=== PATIENT | female | born 1930 | race Caucasian/White ===

== ENCOUNTER 2017-04-24 16:30 | Inpatient (IN) | payer MEDICARE, OTHER ==
[~2017-04-24] VITALS: Ht 167.6 cm; Wt 70.4 kg
--- NOTE | ~2017-04-24 | DS ---
PATIENT'S NAME: EL HAWLEY [facility] AGE: 87 Y [address] [id number] [address] LOCATION: [facility] ADMIT DATE: 04/24/2017 Discharge Summary DISCHARGE DATE: 05/04/2017 FAMILY PHYSICIAN: Azeem Iverson MD ATTENDING PHYSICIAN: Lesly Alexander PRIMARY DIAGNOSES: 1. Right intertrochanteric femur fracture. 2. Hypotension. 3. Acute hypoxic respiratory failure. 4. Severe pulmonary hypertension. 5. Acute blood loss anemia. 6. Escherichia coli urinary tract infection. 7. Chronic conditions include:. 8. Atrial fibrillation with rapid ventricular response and essential hypertension. PRINCIPAL PROCEDURES: Done for the patient include intramedullary nailing of right intertrochanteric femur fracture, transfusion with 4 units of fresh frozen plasma. LABORATORY DATA: WBC on admission was 9.0, was stable throughout the hospital stay, prior to discharge was 9.0. H and H on admission were 13.8 and 42.7, prior to discharge were 10.6 and 32.9; platelet on admission was 135, prior to discharge was 152. Creatinine was 1.0, was stable throughout the hospital stay, prior to discharge was 0.8; sodium was 144, prior to discharge was 142; potassium was 3.4 on admission, was repleted, prior to discharge was 4.9; bicarb was stable throughout the hospital stay. Liver function test was within normal limit throughout the hospital stay. INR on admission was 3.62, was repleted, prior to discharge was 3.04. Procalcitonin was 0.38. MICROBIOLOGY DATA: Blood cultures x2 sets, no growth. However, urine culture from the transferring center was positive for E. coli, greater than 100,000. RADIOLOGY DATA: X-ray of the femur, comminuted impacted intertrochanteric fracture of the femur, there is angulation. CT of the chest without contrast, cardiomegaly and ASCVD, bibasilar pleural parenchymal changes could be chronic or acute, small pleural effusions are noted in addition to some streaky changes, likely chronic scarring but micro atelectasis due to inflammatory process not excluded. Chest x-ray, mild cardiomegaly without CHF. PATIENT'S NAME: MARLEEN EL Sd [facility] AGE: 87 Y [address] ROOM: [id number], [place] [address] LOCATION: [facility] ADMIT DATE: 04/24/2017 Discharge Summary DISCHARGE DATE: 05/04/2017 FAMILY PHYSICIAN: Azeem Iverson MD ATTENDING PHYSICIAN: Lesly Alexander V/Q scan, low probability for a pulmonary embolism. Last chest x-ray, cardiac silhouette remains enlarged, blunting of the left costophrenic angle, suggesting small left pleural fluid collection. Hazy left bibasilar atelectasis and infiltrate is present. A stable prominence of the central pulmonary vessels of right lung is relatively clear. There is no evidence of pneumothorax or significant change. Echocardiogram is reported as ejection fraction 60%. Mild concentric LVH. Diastolic function indeterminate. RV is moderately dilated with reduced RV systolic function. PA pressure 69. Moderate severe tricuspid regurgitation by color Doppler. Ultrasound duplex scan of right lower extremity, negative for right lower extremity DVT. Pulmonary function test pre-surgical evaluation, this primarily suggestive of restrictive disease, so a full PFT recommended for lung volume evaluation, although we will take these numbers with the current episode given the lack of effort. HOSPITAL COURSE: For history of present illness, please take a look at the H and P, which was done by Dr. Grace. The patient was admitted to the Neurotrauma Unit. Orthopedic was consulted. The patient was cleared for intramedullary nailing. However, on the day of the procedure while in the preop room, the patient's oxygen need was observed to have gone up from 2 L of nasal cannula to 5 L of nasal cannula, and her procedure was canceled. On return to the floor, the working diagnosis for the acute hypoxic respiratory failure was thought to be secondary to fluid overload from the 4 units of fresh frozen plasma, which the patient had obtained on admission to reverse her INR. However, the chest x-ray, which was obtained did not confirm this. However, the patient was diuresed without much improvement in her oxygen need. She did also get a CAT scan of her lungs, CAT scan of her chest, which did not show any sign of fluid overload. However, her echocardiogram, which was obtained showed features of right-sided heart failure from moderate to severe tricuspid regurgitation and also severe pulmonary arterial hypertension. Given her worsening respiratory condition, Pulmonary was consulted for management, and also to clear the patient for the procedure. She did also get a Cardiology consult because during this time too her atrial fibrillation also went into rapid ventricular response. Following the cancellation of the procedure, she also developed some borderline hypotension as well, which responded a little bit by holding her blood pressure pills. She was started on Rocephin from the first day of the hospital stay. She was being treated for a presumptive urinary tract infection from the referral center. By the next day after the patient was reviewed by the lasting floorworker, they recommended PATIENT'S NAME: EL HAWLEY [facility] AGE: 87 Y [address] ROOM: [address] [address] LOCATION: [facility] ADMIT DATE: 04/24/2017 Discharge Summary DISCHARGE DATE: 05/04/2017 FAMILY PHYSICIAN: Azeem Iverson MD ATTENDING PHYSICIAN: Lesly Alexander that it was okay for the patient to go in for the procedure provided it was possible to be done under a local or under a spinal block. So 2 days after the initial cancellation of the procedure, the patient was taken into the OR for the procedure, which was done under spinal. Prior to the spinal, the patient was given Versed, and postprocedurally received fentanyl, and post procedure, the patient's recovery time in the recovery room was prolonged. She was obtunded secondary to the fentanyl and Versed, and she did also develop some postop hypotension as well, which responded to fluids and some albumin. Eventually, she was transferred back to her floor, and slowly over time, her mentation did return back to baseline. However, the patient still continued to be hypotensive on and off. Most of the time, this would respond to IV fluid boluses. Her medications for her atrial fibrillation were modified repeatedly by the player development executive secondary to her hypotension. Postop, her pain initially was difficult to be managed, however, it did respond later to Nucynta, and also at about the second day postop, the patient did develop some visual hallucination, which initially was thought to be secondary to the Nucynta. However, this was discontinued, but the patient's hallucination remained unchanged, though was not severe and was thought to be probably secondary to the delirium, so her Nucynta was restarted as she was having more pain and was not appropriately controlled with Abingdon, which she was on. Her hallucination did resolve completely even following the restarting of the Nucynta. The patient was pretty difficult, was pretty tough, and would always want to do what she wanted to do and when she wanted to do it, so she did make some little progress with physical therapy and occupational therapy. Her acute hypoxic respiratory failure was relatively unstable. Sometimes, they were able to successfully wean her off oxygen to room air, and other times she would require at least 2 L of oxygen. During her hospital stay, we did get the results of the urine culture at the transfer facility back, which came back as an E. coli UTI, so her ceftriaxone was later switched to Levaquin, which she completed total of 7 days of antibiotics for the UTI. Cardiology also continued to follow up with the patient modifying her medications for her atrial fibrillation, and ultimately putting her on some digoxin and metoprolol. On the day of discharge, her vital signs were stable. The patient was in her usual self. Blood pressure was stable, and she was discharged to the longterm. MEDICATIONS ON DISCHARGE: 1. Lipitor 40 mg p.o. q.h.s. 2. Norvasc 2.5 mg p.o. daily, dose change. 3. Digoxin 250 mcg p.o. daily, new medication. 4. Lasix 40 mg p.o. daily. 5. Melatonin 6 mg p.o. q.h.s., new medication, p.r.n. 6. Bengay to right hip. 7. Multivitamin 1 tablet p.o. daily. 8. Fish oil 1 g p.o. twice daily. PATIENT'S NAME: EL HAWLEY [facility] AGE: 87 Y [address] [id number] [address] LOCATION: [facility] ADMIT DATE: 04/24/2017 Discharge Summary DISCHARGE DATE: 05/04/2017 FAMILY PHYSICIAN: Azeem Iverson MD ATTENDING PHYSICIAN: Lesly Alexander 9. Metoprolol 25 mg p.o. twice daily. 10. Potassium chloride 20 mEq p.o. daily. 11. Florastor 250 mg p.o. twice daily for 2 days. 12. Nucynta 50 mg p.o. 3 times daily. 13. Coumadin 3 mg p.o. Mondays and , and Coumadin 2 mg p.o. 5 days per week. 14. Albuterol 2.5 every 4 hours p.r.n. 15. Tylenol 650 mg p.o. q.4 hours p.r.n. 16. Abingdon 5/325 mg 1 tablet p.o. every 4 hours p.r.n. 17. Dulcolax 10 mg rectally p.r.n. 18. Milk of magnesia 30 mL p.o. as needed p.r.n. 19. Fleet Enema 133 mL rectally p.r.n. Discharge time spent on this patient is approximately 35 minutes, which included coordinating discharge plan with the wound care rn team. MD SAL GAVIN/paril /[id number] d: 05/05/17 0120 t: 05/10/17 1254, DISCHARGE SUMMARY
--- NOTE | ~2017-04-24 | CON ---
PATIENT'S NAME: MARLEEN [facility] AGE: 87 Y [address] [id number], [place] [address] LOCATION: GICU ADMIT DATE: 04/24/2017 Consultation DISCHARGE DATE: 05/04/2017 FAMILY PHYSICIAN: Azeem Iverson MD ATTENDING PHYSICIAN: Benjamin Grace DATE OF CONSULTATION: 04/25/2017 REFERRING PHYSICIAN: Jr Mendoza DO REASON FOR CONSULTATION: Preoperative evaluation for orthopedic surgery. HISTORY OF PRESENTING ILLNESS: This is an 87-year-old female, who is unfortunately not a very good historian. She does have a history of congestive heart failure as well as atrial fibrillation, on Coumadin. The patient sustained a purely mechanical fall earlier today. She was taken to the hospital in [place] when she was found to have intratrochanteric hip fracture. The patient was transferred to [facility] for higher level of care. Apparently, she slipped down on her behind and did not sustain any other injuries. There was no loss of consciousness, loss of memory associated with the fall. She has been in her usual state of health with no recent events. At the [facility], her temperature was 100.3 and had a borderline positive interval losses and had received Bactrim. Her lab studies were unremarkable aside from an INR of 3.9. The patient also during her stay in the hospital developed shortness of breath. She did have a 2D echocardiogram, which revealed elevated pulmonary artery pressure. She also had a history of possible underlying disease and chronic respiratory failure. REVIEW OF SYSTEMS: A 10-point review of system was done and otherwise negative other than mentioned in history of presenting illness. PAST MEDICAL HISTORY: As extracted from the chart and history provided by the patient and her family includes. PATIENT'S NAME: CALUMET [facility] AGE: 87 Y [address] [id number] [address] LOCATION: GICU ADMIT DATE: 04/24/2017 Consultation DISCHARGE DATE: 05/04/2017 FAMILY PHYSICIAN: Azeem Iverson MD ATTENDING PHYSICIAN: Benjamin Grace 1. History of congestive heart failure. 2. Pulmonary hypertension. 3. Atrial fibrillation. 4. Essential hypertension. 5. History of lung disease. PAST SURGICAL HISTORY: Significant for leg fracture requiring fixation of her right lower extremity. SOCIAL HISTORY: She is an ex-smoker. There is no current history of tobacco, alcohol, or drug abuse. FAMILY HISTORY: Reviewed and is noncontributory due to the patient's advanced age. There is no family history of premature coronary artery disease. PHYSICAL EXAMINATION: GENERAL: Upon initial evaluation, the patient is lying in bed, in mild-to- moderate respiratory distress. VITAL SIGNS: Include a temperature of 98, pulse is 100, respirations 24, blood pressure is 125/85, 93% on 6 L with increasing hypoxia. HEENT: Eyes are nonicteric. Pupils are reactive to light and accommodation. HEENT: Normocephalic, atraumatic. Wet mucous membranes. NECK: Supple. No lymphadenopathy. No jugular venous distention. LUNGS: Good bilateral air entry. There are diffuse crackles. HEART: S1, S2. No murmurs, rubs, or gallops. ABDOMEN: Soft, nontender, no palpable organs. LOWER EXTREMITIES: There is +1 edema. There is no clubbing or cyanosis. SKIN: Warm and dry. MUSCULOSKELETAL: Severe secondary to the patient's pain. PSYCHIATRIC: Reveals appropriate mood, cognition, and affect. LABORATORY DATA: At the current point, review of the study from the outside hospital revealed a chest x-ray, which is unremarkable. Pelvis x-ray showing intertrochanteric hip fracture. EKG from [place] demonstrates AFib at 84 beats per minute. Her white cell count was 9, her hemoglobin was 13.8, hematocrit was 42, platelets 135. Protime is 38.5. PH was 7.49, pCO2 was 39, PO2 was 50. IMPRESSION: 1. Acute hypoxic respiratory failure most likely secondary to fluid overload, and possibility of underlying lung disease. 2. Pulmonary hypertension. PATIENT'S NAME: EL HAWLEY [facility] AGE: 87 Y [address] [place]: [id number] [address] LOCATION: [facility] ADMIT DATE: 04/24/2017 Consultation DISCHARGE DATE: 05/04/2017 FAMILY PHYSICIAN: Azeem Iverson MD ATTENDING PHYSICIAN: Benjamin Grace 3. Non-ST elevated myocardial infarction. RECOMMENDATION: 1. At the current point, I will recommend diuresis. 2. I do recommend to avoid general anesthesia for this patient unless they could do a regional block, if that is not the case general anesthesia is appropriate for the after optimization of the patient. 3. The patient is currently hypoxic. 4. We will continue her current medication, we will DuoNeb. We will obtain an ABG. 5. We will follow up with the primary care team for active diuresis. 6. I will also follow up with Cardiology. Thank you for allowing me to participate in care of this patient. MD ARNOLD NAPIER/mark /[id number] d: 05/28/17 0022 t: 05/31/17 0909, CONSULTATION REPORT
--- NOTE | ~2017-04-24 | CON ---
PATIENT'S NAME: EL HAWLEY [facility] AGE: 87 Y [address] ROOM: [place] [address] LOCATION: GICU ADMIT DATE: 04/24/2017 Consultation DISCHARGE DATE: 05/04/2017 FAMILY PHYSICIAN: Azeem Iverson MD ATTENDING PHYSICIAN: Benjamin RUIZ DATE OF CONSULTATION: 04/24/2017 REFERRING PHYSICIAN: JR MENDOZA DO REQUESTING PHYSICIAN: Jr Mendoza DO CONSULTING PHYSICIAN: Chris Erwin MD REASON FOR CONSULTATION: Preoperative optimization. HISTORY OF PRESENT ILLNESS: The patient is an 87-year-old female, who is unfortunately not a very good historian. It appears that she does carry history of congestive heart failure as well as atrial fibrillation on Coumadin. The patient sustained a purely mechanical fall earlier today. She was taken to the hospital in [place] when she was found to have an intertrochanteric hip fracture. The patient was transferred to [place] for surgical management. Per my discussion with the patient, she reports that she basically lost her footing and slipped down onto her behind and did not sustain any other injuries. There was no loss of consciousness or loss of memory associated with this episode. The patient still lives in her own home with her 95-year- old and takes care of him. She does not report any occurrences of shortness of breath, orthopnea, paroxysmal nocturnal dyspnea, chest pain, or palpitations. The patient reports that she has been in her baseline state of health as of lately though has been slightly more tired which she attributes to age. At the outside hospital, the patient did have a temperature of 100.3 and had a borderline positive urinalysis and had received Bactrim. Her lab studies were unremarkable aside from an INR of 3.9. REVIEW OF SYSTEMS: All systems have been reviewed and are negative aside from pertinent positives mentioned above. PATIENT'S NAME: EL HAWLEY [facility] AGE: 87 Y [address] ROOM: [place] [address] LOCATION: GICU ADMIT DATE: 04/24/2017 Consultation DISCHARGE DATE: 05/04/2017 FAMILY PHYSICIAN: Azeem Iverson MD ATTENDING PHYSICIAN: Benjamin RUIZ PAST MEDICAL HISTORY: As extracted from her chart and a history provided by the patient and her daughter is significant for, 1. Questionable history of congestive heart failure, unspecified type. 2. Atrial fibrillation on Coumadin therapy. 3. Essential hypertension. PAST SURGICAL HISTORY: Significant for a leg fracture requiring fixation of her right lower extremity. SOCIAL HISTORY: Negative for history or ongoing toxic habits. The patient still resides at home and manages well. FAMILY HISTORY: Reviewed and is noncontributory due to known underlying etiology for the patient's presentation and advanced age. PHYSICAL EXAMINATION: VITAL SIGNS: Her temperature is 97.6, pulse is 84, respirations 18, blood pressure 124/74, saturating 93% on 2 L nasal cannula, desaturating down into mid to high 80s on room air. GENERAL: Appears as an elderly frail female, in no acute distress. Alert and oriented x3. NEUROLOGIC: Nonfocal. EYES: Exam shows pupils are equal and reactive to light. LYMPHATIC: Shows no cervical lymphadenopathy. ENDOCRINE: Shows no thyromegaly. LUNGS: Clear to auscultation in all mendez. HEART: Exam reveals an irregular rate and rhythm with no significant murmurs, gallops, or rubs. There is no lower extremity edema and trace jugular venous distention. GI: Exam reveals abdomen is soft, nontender, nondistended. : No costovertebral angle tenderness. VASCULAR: 2+ pedal pulses. MUSCULOSKELETAL: Exam is deferred. SKIN: Warm and dry. PSYCHIATRIC: Reveals appropriate mood, cognition, and affect. LABORATORY DATA: Review of the studies from the outside hospital revealed a chest x-ray which is unremarkable and pelvis x-rays showing an intertrochanteric hip fracture. Her EKG from [place] demonstrates AFib at 84 beats per minute with questionable very minor ST depression in V5 as long as concurrent T-wave PATIENT'S NAME: EL HAWLEY [facility] AGE: 87 Y [address] ROOM: [place] [address] LOCATION: [facility] ADMIT DATE: 04/24/2017 Consultation DISCHARGE DATE: 05/04/2017 FAMILY PHYSICIAN: Azeem Iverson MD ATTENDING PHYSICIAN: Benjamin RUIZ inversions in the same lead. Lab studies reveal an INR of 3.9 and aside from that, an unremarkable CBC and a BMP as well as negative cardiac enzymes. Urinalysis shows positive nitrates and 3+ bacteria with 0 to 2 epithelial cells. IMPRESSION AND RECOMMENDATIONS: This is an 87-year-old female, who is scheduled for operating room for tomorrow for intertrochanteric nail fixation of a right hip fracture. 1. Preoperative optimization. At this point, the patient appears to be euvolemic and does not report any symptoms that would suggest decompensation of her cardiac conditions in recent term. As such, I would recommend that we get a perioperative two dimensional echo which we will not hold up the time of the surgery. We will carefully monitor the patient's fluid status given her history of congestive heart failure pre and postop. We will reverse the patient's iatrogenic coagulopathy with vitamin K and FFP and target that therapy for an INR below 1.5. No additional preoperative optimization will be required. 2. History of essential hypertension. We will continue the patient on her current antihypertensive regimen. 3. Pain control and preop orders have been entered by Orthopedic Service. 4. We will follow the patient with you and help manage her perioperative course. Thank you for allowing us to participate in the care of this pleasant woman. Time dedicated to this patient's encounter is 35 minutes. MD TANNA GARY/mark /[id number] d: 04/25/17 0145 t: 06/05/17 0402, CONSULTATION REPORT
--- NOTE | ~2017-04-24 | PUL ---
PATIENT'S NAME: EL HAWLEY [facility] AGE: 87 Y [address] ROOM: [place] [address] LOCATION: [facility] ADMIT DATE: 04/24/2017 Pulmonary DISCHARGE DATE: FAMILY PHYSICIAN: Azeem Iverson MD ATTENDING PHYSICIAN: Benjamin RUIZ NAME OF PROCEDURE: Pulmonary Function Test DATE OF PROCEDURE: May 02, 2017 TECH: HIMA Montiel REASON FOR EXAM: Pre-surgical evaluation RESULTS: Spirometry reveals decreased FVC at 0.74 which is 31% predicted, decreased FEV1 at 0.68 which is 38% predicted, normal FEV1/FVC ratio of 91.3%. The patient did not give great efforts. PHYSICIAN INTERPRETATION: This spirometry suggestive of restrictive disease so a full PFT recommended for lung volume evaluation although will take these numbers with a grain of salt given the lack of effort. I thank you for allowing me to participate in care of this patient. MD ARNOLD NAPIER/esvin /[id number] dtt: 05/04/17 1052 , Rm Mcpherson dtd: 04/28/17 1112
--- NOTE | ~2017-04-24 | CON ---
PATIENT'S NAME: EL OMER [facility] AGE: 87 Y [address] ROOM: [place] [address] LOCATION: GICU ADMIT DATE: 04/24/2017 Consultation DISCHARGE DATE: FAMILY PHYSICIAN: Azeem Iverson MD ATTENDING PHYSICIAN: Benjamin RUIZ REFERRING PHYSICIAN: JANELL PATEL DO CARDIOLOGY CONSULTATION REPORT REFERRING PHYSICIAN: Joseph Land MD REASON FOR CONSULTATION: Atrial fibrillation with rapid ventricular rate and preop cardiac risk stratification. HISTORY OF PRESENT ILLNESS: Ms. Omer is a pleasant 87-year-old female who was brought to the hospital following a fall and fracture of the right femur. The patient apparently had a mechanical fall on Thursday. She was taken to the hospital in [place], where she was found to have intertrochanteric right hip fracture. She was subsequently transferred to [facility] for surgical management. The patient denies any loss of consciousness. The patient denies any dizziness. She stated that she slipped and fell. The patient lives in her own home with her . She denies to nj shortness of breath. No history of chest pain. No history of palpitations. No previous known history of coronary artery disease. REVIEW OF SYSTEMS: The patient has chronic mild diminution in vision. No recent change. No history of dysphagia. No history of nausea or vomiting. No history of diarrhea or constipation. No history of cough or expectoration. She complained of pain in the right hip area. Review of other systems was essentially negative. PAST MEDICAL HISTORY: 1. Chronic atrial fibrillation. She is on long-term anticoagulation. 2. Hypertension. PAST SURGICAL HISTORY: History of fracture of right lower extremity. SOCIAL HISTORY: The patient is and lives with her . FAMILY HISTORY: PATIENT'S NAME: MIR [facility]ERTY [facility] AGE: 87 Y [address] ROOM: [place] [address] LOCATION: GICU ADMIT DATE: 04/24/2017 Consultation DISCHARGE DATE: FAMILY PHYSICIAN: Azeem Iverson MD ATTENDING PHYSICIAN: Benjamin RUIZ No family history of premature coronary artery disease. PHYSICAL EXAMINATION: GENERAL APPEARANCE: She is awake, alert, and oriented and her family is at bedside. VITAL SIGNS: Her pulse rate is 112 beats per minute, blood pressure is 127/78 mmHg, respiratory rate 18, and temperature 98.1. HEENT: Her head is atraumatic and normocephalic. She is on oxygen at 5 L/minute by nasal cannula. Tongue is moist. NECK: No significant jugular venous distention is present. CARDIOVASCULAR: S1 and S2 are audible. They are irregular in rate and rhythm. Grade 2/6 systolic murmur is audible in the left parasternal area. RESPIRATORY: Bilateral vesicular breath sounds are audible. Breath sounds are diminished on both sites. Minimal basilar crackles are audible on both sides. ABDOMEN: Distended which is chronic per patient. Soft, nontender. EXTREMITIES: Left lower extremity has mild pedal edema. Right lower extremity has dressing and is on support. NEUROLOGIC: She is awake, alert, and oriented. SKIN: Warm and dry. Her intake in the last 24 hours was 881, with the output of 2450 with a negative balance of 1569 mL. LABORATORY DATA AND IMAGING STUDIES: PH 7.49, pCO2 of 39, and pO2 of 50. Sodium 145, potassium 4.3, chloride 108, CO2 of 28, glucose 120, BUN 27, and creatinine 0.9. AST 23, ALT is 26, and magnesium 2.3. CPK 65, CK-MB less than 0.5, and troponin less than 0.04. ProBNP 4626. White blood cell count 8.1, hemoglobin 12.7, hematocrit 39.6, and platelet count 112,000. Her INR was 1.1. Her chest x-ray showed cardiomegaly with no evidence of pulmonary edema. CT scan of the chest showed mild bilateral pleural effusions. X-ray of the right leg showed comminuted, impacted intertrochanteric fracture of the femur. EKG done on 04/24/2017 showed atrial fibrillation with ventricular rate of 94 beats per minute. T-wave inversion was noted in anterolateral leads. Echocardiogram showed normal LV size and systolic function with estimated ejection fraction of 60%. Moderate concentric left ventricular hypertrophy. Moderately dilated RV with reduced RV systolic function. Fedjcqvi-mo-pucmwl tricuspid regurgitation with severe pulmonary hypertension. Her estimated pulmonary pressure was 69 mmHg. MEDICATIONS: Her cardiac medications include: 1. Atorvastatin 40 mg daily. 2. Potassium 20 mEq daily. PATIENT'S NAME: EL OMER [facility] AGE: 87 Y [address] ROOM: [id number] [place], [place] [address] LOCATION: [facility] ADMIT DATE: 04/24/2017 Consultation DISCHARGE DATE: FAMILY PHYSICIAN: Azeem Iverson MD ATTENDING PHYSICIAN: Benjamin RUIZ 3. Furosemide 40 mg daily. 4. Amlodipine 5 mg daily. 5. Lisinopril 20 mg b.i.d. ASSESSMENT AND PLAN: 1. Atrial fibrillation with rapid ventricular rate. Rapid ventricular rate is likely secondary to her recent fracture with pain, hypoxia. Her beta blockers were discontinued due to hypotension today. We will restart beta blockers at a lower dose for ventricular rate control and monitor. We will hold lisinopril and amlodipine, if blood pressure remains low. Treatment of hypoxia and right femur fracture per the hospitalist team. 2. Cor pulmonale. The patient has severe pulmonary hypertension due to possible chronic obstructive pulmonary disease and diastolic dysfunction. She has ifjovjlk-aw-zoiavk tricuspid regurgitation and mildly diminished right ventricular systolic function. We will continue diuretics. Continue management for hypertension. Management of possible chronic obstructive pulmonary disease per the hospitalist team. 3. Right femur intertrochanteric fracture. The patient is being planned for surgery. Due to her advanced age, comorbid medical conditions including hypoxia requiring 5 L of oxygen, possible chronic obstructive pulmonary disease, and pulmonary hypertension, she is at intermediate to high risk for perioperative cardiac events. Please monitor patient hemodynamically and watch for any arrhythmias. Please avoid severe hypertension or hypotension. No further cardiac workup is recommended prior to urgent surgery. The plan of care was discussed with Dr. Land. We will follow the patient along with you. Thank you for allowing us in taking part in the care of this pleasant patient. Please see today's progress note for further recommendations. MD MARILEE RIVERA/mark /[id number] d: 04/26/17 1835 t: 05/07/17 1744, CONSULTATION REPORT
--- NOTE | ~2017-04-24 | OR ---
PATIENT'S NAME: MISSY OMER [facility] AGE: 87 Y [address] ROOM: [place] [address] LOCATION: [facility] ADMIT DATE: 04/24/2017 OR/Procedure Report DISCHARGE DATE: FAMILY PHYSICIAN: Azeem Iverson MD ATTENDING PHYSICIAN: Benjamin RUIZ SURGEON: Janell Mendoza DO DOCUMENT MANAGEMENT SPECIALIST: DATE OF PROCEDURE: 04/27/2017 PREOPERATIVE DIAGNOSES: 1. Right comminuted intertrochanteric hip fracture. 2. Osteopenia. 3. History of cardiopulmonary disease with pulmonary hypertension and atrial fibrillation. PROCEDURE: Internal fixation of right intertrochanteric fracture using [employer] InterTAN TriGen cephalomedullary nail size 130 degree right, 13 mm in diameter x 40 cm in length with integrated interlocking lag screw system, 105 mm lag screw, 100 mm compression screw. COMPLICATIONS: None. ESTIMATED BLOOD LOSS: Less than 50 mL. ANTIBIOTICS: 2 g IV Ancef. ANESTHESIA: Local with block done preoperatively. INDICATIONS: Ms. Missy Omer is a pleasant 87-year-old female who had a mechanical fall from standing height, sustaining pathologic intertrochanteric fracture of the right hip. This occurred on Thursday, which she had been seen medically and reversed her anticoagulation, Coumadin, with the hospitalist using FFP. Due to cardiopulmonary concerns, she had not been cleared till today. She had been saturating on 3 L, requiring 3 L for O2 saturations that came up to 5 L. After appropriate workup and medical optimization, she has deemed increased risk for cardiopulmonary complications and has been optimized as good as she can. We discussed the risks, benefits, and potential complications with the patient's family members. She has been cross covered off the Coumadin on heparin. Understands the increased risk of bleeding, understands the risk of DVT which could lead to pulmonary embolism or even . Understands the risk of a clot forming that can end up with a stroke. She understands the risk of periprosthetic fractures, infections, fat emboli, breakage of the hardware, cut out of the hardware. She understands the risks of traction injury, neurovascular injury. Having been told all the scary things that can happen, the patient's family members were well informed and PATIENT'S NAME: MISSY OMER [facility] AGE: 87 Y [address] ROOM: [id number] [place], [place] [address] LOCATION: [facility] ADMIT DATE: 04/24/2017 OR/Procedure Report DISCHARGE DATE: FAMILY PHYSICIAN: Azeem Iverson MD ATTENDING PHYSICIAN: Benjamin RUIZ they did want to undergo surgical treatment even though she is high risk. DESCRIPTION OF PROCEDURE: The patient was brought back to operative suite, having undergone preoperative block in the preop arena. We reduced the fracture on the Heber table in both AP and lateral planes. Time-out confirmed the operative site. Preop antibiotics. A 2-cm incision was made proximal to the greater trochanter. The fascia was split and using blunt finger dissection in the appropriate landmarks with the guidepin placed protecting the piriformis and gluteus tendon, the guidewire was placed followed by reamer after confirmed in AP and lateral under a reduced intertrochanteric fracture. We then placed an intramedullary guide pin down to the physeal scar of the knee, distal tibia, and measured it to be 40 cm. The 130 degree right InterTAN TriGen nail was selected after reaming 40.5 mm and this nail slit gently over the guidewire. We confirmed the positioning and then placed the guide pin to measure the lag screw which measured 105 mm. We confirmed the position in both AP and lateral with goal tip to apex distance met, and placed 105 mm lag screw and 100 mm compression screw. Traction was let off prior to applying compression. The lag screw locked proximally. X-rays confirmed good positioning and alignment of the fracture. There was minimal blood loss. Local Marcaine with epinephrine was injected at the two incision sites. AP and lateral x-rays confirmed positioning of the roxane and no complications. The wound was irrigated and closed the fascia with #1 Vicryl in a utkqge-ym-qvmor pattern and the subcutaneous tissue with Monocryl in a simple buried pattern followed by skin topher. Sterile dressing was placed. Sponge and needle counts were correct without complications. The staff then brought her off the operating room table and brought her to recovery room. If she develops any change in her saturations or concerns, she will go to the ICU. I have discussed with Anesthesia to go down and inspect that she will need this, so we will carefully monitor her. We will allow her to toe-touch weight bear due to her osteoporosis and risk for cut out if she puts too much weight due to concerns of her bone quality only. JANELL MENDOZA DO PH/paril /[id number] d: 04/27/172231 t: 05/06/17 0523, OPERATIVE SUMMARY
--- NOTE | ~2017-04-24 | CON ---
PATIENT'S NAME: EL HAWLEY [facility] AGE: 87 Y [address] ROOM: [place] [address] LOCATION: [facility] ADMIT DATE: 04/24/2017 Consultation DISCHARGE DATE: FAMILY PHYSICIAN: PHYSICIAN, UNKNOWN ATTENDING PHYSICIAN: Benjamin RUIZ REFERRING PHYSICIAN: JR MENDOZA DO CHIEF COMPLAINT: Right hip pain. HISTORY OF PRESENT ILLNESS: This is an 87-year-old female, who was at [facility], had a mechanical fall, injuring her right hip. She was transferred to [facility] and referred here for definitive care. She is admitted to the hospitalist, Dr. Lesly Alexander, with sc Orthopedic Surgeon, Dr. Jr Mendoza for consultation for her orthopedics injuries to her hip. She states she had no loss of consciousness and no symptoms prior to the fall. It was simply mechanical. She does have history of fall. She did not report any loss of consciousness. Labs and x-rays reviewed from [facility] confirmed a right comminuted intertrochanteric fracture. She has osteopenia, chronic back pain, history of falls, and atrial fibrillation with INR at 3.9. She has a history of CHF, UTIs, hypertension, hypokalemia, thrombocytopenia, and renal insufficiency. PAST MEDICAL HISTORY: Reviewed above. PAST SURGERIES: Include benign breast mass removed and tibia fracture fixation. CURRENT MEDICATION LIST: Reviewed. ALLERGIES: PENICILLIN, UNKNOWN SIDE EFFECT. PHYSICAL EXAMINATION: GENERAL: The patient is alert and oriented x3. Pain is well-controlled. Her daughter is at the bedside. She is lying supine. NEURO: She moves bilateral upper extremities without pain and left lower extremity without pain. She admits to having chronic back pain, but no different than normal. No bowel or bladder changes or saddle-like anesthesia. Right hip region is closed. There is swelling. Did not check motor exam. HEENT: Her head is normocephalic, atraumatic. NECK: Supple. Trachea midline. LUNGS: She is breathing without use of accessory muscles. No significant rib PATIENT'S NAME: EL HAWLEY [facility] AGE: 87 Y [address] ROOM: [place] [address] LOCATION: [facility] ADMIT DATE: 04/24/2017 Consultation DISCHARGE DATE: FAMILY PHYSICIAN: PHYSICIAN, UNKNOWN ATTENDING PHYSICIAN: Benjamin RUIZ tenderness. She has no tenderness over clavicles and moves bilateral upper extremities without pain. There is no abrasions over elbows or wrists region with no tenderness there. ABDOMEN: Soft, nontender. EXTREMITIES: She is able to wiggle her toes below with normal sensation on both sides. Again, did not check motor response to her right lower extremity. LABORATORY DATA: X-rays reviewed are AP pelvis and lateral right hip do not show the entire femur, the proximal femur at the intertrochanteric region shows comminuted shortened varus positioned intertrochanteric fracture on the right. There also is diffuse osteopenia with lumbar degenerative changes. IMPRESSION: An 87-year-old female with what is reported as a mechanical fall, fracture in her right intertrochanteric femur, she is hyper-anticoagulated due to her atrial fibrillation on Coumadin with an INR of 3.9, she is admitted to the hospitalist to address her hyper-anticoagulation as well as medically optimize and clear her for surgical fixation. I ordered x-ray full length femur to confirm no other potential complications at the femur-size implant, long cephalomedullary roxane to the right femur upon medical clearance and optimization. We discussed the risks, benefits, potential complications, with the patient's daughter at the bedside, understanding she is at increased risk for perioperative cardiac event given her history, she will have reversal of her hyper-anticoagulation with atrial fibrillation and is at risk for stroke. She will start back those anticoagulation treatment measures as soon as able to postfracture fixation. She has osteopenia and has the risk for increase cutout or periprosthetic fractures even with the roxane in there. We will do our best to align the fracture and place the cephalomedullary roxane and get her back to weightbearing with use of walker, strengthening, and fall precautions. Aggressive pulmonary care. She has been recently treated for urinary tract infection, understands risk of infection, neurovascular injury. She does have calcifications seen in her vessels on AP x-ray indicating peripheral vascular disease also at risk for coronary disease with that correlation. She understands risk of forming the deep vein thrombosis and this could lead to pulmonary embolism and even . She understands the mortality rate can be as high as 50%, the patient's are not living in the year after this type of age group and injured fracture. Understand the potential for bleed especially on anticoagulants, potential for complication for medications including anaphylaxis. The patient has been well-informed and we will let the hospitalist admit her and medically optimize this patient in preparation for fracture fixation. They understand thoroughly the treatment options, risks, benefits, and potential complications. PATIENT'S NAME: EL HAWLEY [facility] AGE: 87 Y [address] ROOM: [place] [address] LOCATION: [facility] ADMIT DATE: 04/24/2017 Consultation DISCHARGE DATE: FAMILY PHYSICIAN: PHYSICIAN, UNKNOWN ATTENDING PHYSICIAN: Benjamin RUIZ JR MENDOZA DO PH/modl /[id number] d: 04/25/17 0105 t: 04/27/17 1410, CONSULTATION REPORT
--- NOTE | ~2017-04-24 | ECHO ---
Transthoracic Echocardiography Report (TTE) Demographics Patient Name EL HAWLEY Date of Study 04/25/2017 Patient Number [id number] Visit Number [id number] Date of 1930 Room Number G6223 Accession Number [id number] Gender Female Age 87 year(s) Referring Erosion Control Specialist Radha Kang [facility] Physician Physician Interpreting Lauren Schultz Otr Flatbed Driver Physician MD Supervising Ordering Physician MD/MLP Nurse Stress Watch Hairspring Assembler Conclusions Summary Technically difficult exam. Normal LV size and systolic function. The estimated left ventricular ejection fraction is 60%. Moderate concentric left ventricular hypertrophy. Diastolic function indeterminate due to patient's arrhythmia. RV is moderately dilated with reduced RV systolic function. Moderate biatrial enlargement. Dilated IVC with poor inspiratory collapse consistent with elevated RA pressure. Moderate-severe tricuspid regurgitation by color Doppler. There is severe pulmonary hypertension. The pulmonary pressure (RVSP) is 69 mmHg. Procedure Type of Study TTE procedure:2D Echocardiogram. Procedure Date Date: 04/25/2017 Start: 12:29 PM Study Location: Inpatient Portable Technical Quality: Limited visualization due to combative patient. Indications:Congenital heart disease. Appropriate Use Criteria: 9 Patient Status: Routine HR: 105 bpm BP: 118/79 mmHg M-Mode/2D Measurements LV Diastolic Dimension: 2.69 cm LV Systolic Dimension: 1.62 cm LV Septum Diastolic: 1.39 cm LV PW Diastolic: 1.31 cm AO Root Dimension: 2.8 cm Cardiac Output: 2.62 l/min AV Cusp Separation: 1.4 cm RV Diastolic Dimension: 3.75 cm LA volume: 118 ml LVOT: 2 cm LVOT VTI: 7.96 cm LV Stroke volume: 24.99 ml Doppler Measurements AV Peak Velocity: 1.16 m/s MV Peak E-Wave: 0.78 m/s AV Peak Gradient: 5.38 mmHg AV Mean Gradient: 3 mmHg MV P1/2t: 34 msec LVOT Peak Velocity: 0.61 m/s TR Velocity:3.69 m/s PV Peak Velocity: 0.58 m/s TR Gradient:54.46 mmHg PV Peak Gradient: 1.34 mmHg Estimated RAP:15 mmHg Estimated PASP: 69.46 mmHg Estimated RVSP: 69 mmHg Findings Left Ventricle Moderate concentric left ventricular hypertrophy. Diastolic function indeterminate due to patient's arrhythmia. Right Ventricle RV is moderately dilated with reduced RV systolic function. Left Atrium The left atrium is moderately dilated. Right Atrium RA is moderately dilated. Dilated IVC with poor inspiratory collapse consistent with elevated RA pressure. Mitral Valve Trivial mitral regurgitation by color Doppler. Aortic Valve The aortic valve is moderately sclerotic. Tricuspid Valve Moderate-severe tricuspid regurgitation by color Doppler. There is severe pulmonary hypertension. The pulmonary pressure (RVSP) is 69 mmHg. Pulmonic Valve Pulmonic valve is not well seen. Signature dtt: IRENE HERNANDES dtd: 04/25/17 1229 Physician Self Edit
--- NOTE | ~2017-04-24 | ENPV ---
Vascular Lower Extremities DVT Study Procedure Demographics Patient Name EL HAWLEY Date of Study 05/02/2017 Patient Number [id number] Gender Female Date of 1930 Age 87 Visit Number [id number] Height 66 Accession Number [id number] Weight 133 Referring Kishor Romo MD Physician Physician Physician Mary Grover Theatre Manager Physician Pipe Changer Precious Jennings [facility], RVT Conclusions Summary TECHNIQUE: The veins of the lower extremity on the right were evaluated from the groin to the ankle using toledo scale, compression, and augmentation. Venous hemodynamics were evaluated with color flow and spectral Doppler. FINDINGS: The deep and superficial veins of the right leg show normal color flow and compressibility without thrombosis. IMPRESSION: 1. NEGATIVE RIGHT LOWER EXTREMITY VENOUS DOPPLER. Procedure Type of Study: Veins:Lower Extremities DVT Study, Lower Extremity Right. Patient Status:Routine. Study Location:Inpatient Portable. Technical Quality:Limited visualization due to patient immobility. Velocities are measured in cm/s ; Diameters are measured in cm Right Lower Extremities DVT Study Measurements Right 2D and Doppler Measurements + + + + +------+------+ + !Location !Visualized!Compressibility!Thrombosis!Signal!Reflux!Reflux ! ! ! ! ! ! ! !(sec) ! + + + + +------+------+ + !GSV Thigh !Yes !Yes !None !Phasic!No ! ! + + + + +------+------+ + !Common !Yes !Yes !None !Phasic!No ! ! !Femoral ! ! ! ! ! ! ! + + + + +------+------+ + !Prox !Yes !Yes !None !Phasic!No ! ! !Femoral ! ! ! ! ! ! ! + + + + +------+------+ + !Mid Femoral!Yes !Yes !None !Phasic!No ! ! + + + + +------+------+ + !Dist !Yes !Yes !None !Phasic!No ! ! !Femoral ! ! ! ! ! ! ! + + + + +------+------+ + !Popliteal !Yes !Yes !None !Phasic!No ! ! + + + + +------+------+ + !Gastroc !Yes !Yes !None !Phasic!No ! ! + + + + +------+------+ + !PTV !Yes !Yes !None !Phasic!No ! ! + + + + +------+------+ + !Peroneal !Yes !Yes !None !Phasic!No ! ! + + + + +------+------+ + Left Lower Extremities DVT Study Measurements Left 2D and Doppler Measurements + + + + +------+------+ + !Location !Visualized!Compressibility!Thrombosis!Signal!Reflux!Reflux ! ! ! ! ! ! ! !(sec) ! + + + + +------+------+ + !GSV Thigh !Yes !Yes !None !Phasic! ! ! + + + + +------+------+ + !Common !Yes !Yes !None !Phasic! ! ! !Femoral ! ! ! ! ! ! ! + + + + +------+------+ + Impressions Right Impression no dvt seen Signature dtt: Soham Coppola dtd: 05/02/17 [facility] Physician Self Edit
[2017-04-24] MEDS ORDERED: COUMADIN ** 9/62 MG PO ×2 (17:38→17:46)
[2017-04-24] MEDS ORDERED: ZAROXOLYN2.5 MG PO (17:49)
[2017-04-24] MEDS ORDERED: LASIX40 MG PO (17:50)
[2017-04-24] MEDS ORDERED: NORVASC2.5 MG PO (17:52)
[2017-04-24] MEDS ORDERED: COREG25 MG PO (17:58)
[2017-04-24] MEDS ORDERED: POTASSIUM CHLO20 ME1 PO (18:00)
[2017-04-24] MEDS ORDERED: LIPITOR40 MG PO (18:01)
[2017-04-24] MEDS ORDERED: LOTENSIN20 MG PO (18:02)
[2017-04-24] MEDS ORDERED: FISH OIL 1,0001 EAC5 PO (18:03)
[2017-04-24] MEDS ORDERED: MULTI VITAMIN1 EACH PO (18:03)
[2017-04-24] MEDS ORDERED: VITAMIN D-40400 UNIT PO (18:04)
[2017-04-24 21:04] LABS: HEMATOCRIT 42.7 % (30.0-46.0); HEMOGLOBIN 13.8 g/dL (10.0-15.0); MCH 33.5 pg (27.0-34.0); MCHC 32.3 gm/dL (32.0-36.5); MCV 103.6 fl (83.0-98.0); MPV 10.5 fl (9.4-12.4); PLATELET COUNT 135 K/uL (150-450); RBC 4.12 M/uL (3.00-5.00); RDW-CV 14.9 % (11.9-14.6)
[2017-04-24 21:14] LABS: INR - (THERAPEUTIC) 3.62 (0.92-1.07); PROTIME 38.5 SECONDS (9.8-11.4); PTT 39 SECONDS (25-32)
[2017-04-24 21:19] LABS: BILIRUBIN URINE NEGATIVE (NEGATIVE); BLOOD URINE 50 /UL (NEGATIVE); COLOR URINE YELLOW (YELLOW); GLUCOSE URINE NEGATIVE (NEGATIVE); KETONE URINE NEGATIVE (NEGATIVE); LEUKOCYTES URINE 500 /UL (NEGATIVE); NITRITE URINE NEGATIVE (NEGATIVE); PROTEIN URINE 30 mg/dL (NEGATIVE); SPEC GRAVITY URINE 1.015 (1.003-1.035); TURBIDITY URINE 2+ (CLEAR); UROBILINOGEN URINE NORMAL (NORMAL)
[2017-04-24 21:22] LABS: ALBUMIN 3.2 gm/dL (3.5-5.0); ANION GAP 11.4 (10.0-19.0); CALCIUM 8.4 mg/dL (8.5-10.5); PHOSPHORUS 3.5 mg/dL (2.5-4.9); POTASSIUM 3.4 mMol/L (3.7-5.1)
[2017-04-24 21:30] LABS: ABSOLUTE NEUTROPHIL CT (ANC) 7.8 K/uL (1.8-7.8); BANDED NEUTROPHIL # 0.4 K/uL (0.0-0.1); BANDED NEUTROPHILS % 4 %; LYMPHOCYTE # 0.6 K/uL (0.8-4.0); LYMPHOCYTE % 7 %; MONOCYTE # 0.5 K/uL (0.0-1.0); SEGMENTED NEUTROPHIL # 7.5 K/uL (1.8-7.8); SEGMENTED NEUTROPHIL % 83 %
[2017-04-24 21:38] LABS: WBC URINE PACKED FIELD #/HPF (NEGATIVE)
[2017-04-24 21:41] LABS: BACTERIA URINE MANY (NEGATIVE); MUCUS URINE 2+ (NEGATIVE)
[2017-04-24 21:42] LABS: CPK 65 IU/L (21-215)
[2017-04-25 05:24] LABS: INR - (THERAPEUTIC) 1.53 (0.92-1.07); PROTIME 16.1 SECONDS (9.8-11.4)
[2017-04-25 07:52] LABS: PROTIME 14.7 SECONDS (9.8-11.4)
[2017-04-25 07:54] LABS: BASOPHIL % 0.2 %; EOSINOPHIL % 0.7 %; HEMATOCRIT 39.7 % (30.0-46.0); HEMOGLOBIN 12.8 g/dL (10.0-15.0); IMMATURE GRANULOCYTE # 0.1 K/uL (0.0-0.3); IMMATURE GRANULOCYTE % 1.3 %; LYMPHOCYTE # 0.5 K/uL (0.8-4.0); LYMPHOCYTE % 8.8 %; MCH 33.3 pg (27.0-34.0); MCHC 32.2 gm/dL (32.0-36.5); MCV 103.4 fl (83.0-98.0); MONOCYTE # 0.6 K/uL (0.0-1.0); MONOCYTE % 10.1 %; MPV 10.3 fl (9.4-12.4); NEUTROPHIL # (ANC) 4.8 K/uL (1.8-7.8); NEUTROPHIL % 78.9 %; NRBC % 0 /100WBC (0-0.00); PLATELET COUNT 118 K/uL (150-450); RBC 3.84 M/uL (3.00-5.00); RDW-CV 14.9 % (11.9-14.6); WBC 6.1 K/uL (4.0-11.0)
[2017-04-25 08:03] LABS: ALBUMIN 3.3 gm/dL (3.5-5.0); ANION GAP 11.6 (10.0-19.0); CALCIUM 8.7 mg/dL (8.5-10.5); CREATININE 0.9 mg/dL (0.5-1.1); POTASSIUM 3.6 mMol/L (3.7-5.1); TOTAL BILIRUBIN 0.9 mg/dL (0.0-1.5)
[2017-04-25 08:42] LABS: BICARBONATE 29.7 mmol/L (18.0-23.0); PCO2 39 mmHg (35-45); PO2 50 mmHg (80-90)
[2017-04-26 04:33] LABS: BASOPHIL % 0.1 %; EOSINOPHIL % 0.1 %; HEMATOCRIT 39.6 % (30.0-46.0); HEMOGLOBIN 12.7 g/dL (10.0-15.0); IMMATURE GRANULOCYTE # 0.1 K/uL (0.0-0.3); IMMATURE GRANULOCYTE % 0.6 %; LYMPHOCYTE # 0.5 K/uL (0.8-4.0); LYMPHOCYTE % 6.5 %; MCH 33.5 pg (27.0-34.0); MCHC 32.1 gm/dL (32.0-36.5); MCV 104.5 fl (83.0-98.0); MONOCYTE # 0.7 K/uL (0.0-1.0); MPV 10.5 fl (9.4-12.4); NEUTROPHIL # (ANC) 6.8 K/uL (1.8-7.8); NEUTROPHIL % 83.7 %; NRBC % 0 /100WBC (0-0.00); PLATELET COUNT 112 K/uL (150-450); RBC 3.79 M/uL (3.00-5.00); RDW-CV 15.1 % (11.9-14.6); WBC 8.1 K/uL (4.0-11.0)
[2017-04-26 04:41] LABS: PROTIME 11.7 SECONDS (9.8-11.4)
[2017-04-26 04:45] LABS: ANION GAP 13.3 (10.0-19.0); CREATININE 0.9 mg/dL (0.5-1.1); POTASSIUM 4.3 mMol/L (3.7-5.1)
[2017-04-26 04:48] LABS: INR - (THERAPEUTIC) 1.11 (0.92-1.07)
[2017-04-27 02:17] LABS: BASOPHIL % 0.2 %; EOSINOPHIL # 0.1 K/uL (0.0-0.5); EOSINOPHIL % 1.2 %; HEMATOCRIT 36.9 % (30.0-46.0); HEMOGLOBIN 11.8 g/dL (10.0-15.0); IMMATURE GRANULOCYTE % 0.5 %; LYMPHOCYTE # 0.8 K/uL (0.8-4.0); LYMPHOCYTE % 9.7 %; MCH 33.7 pg (27.0-34.0); MCV 105.4 fl (83.0-98.0); MONOCYTE # 0.8 K/uL (0.0-1.0); MPV 10.6 fl (9.4-12.4); NEUTROPHIL # (ANC) 6.3 K/uL (1.8-7.8); NEUTROPHIL % 78.4 %; NRBC % 0 /100WBC (0-0.00); PLATELET COUNT 104 K/uL (150-450); RDW-CV 14.8 % (11.9-14.6)
[2017-04-27 02:36] LABS: ANION GAP 11.4 (10.0-19.0); BLOOD UREA NITROGEN 34 mg/dL (6-24); CALCIUM 8.6 mg/dL (8.5-10.5); CHLORIDE 107 mMol/L (96-110); CO2 28 mMol/L (22-32); CREATININE 0.8 mg/dL (0.5-1.1); ESTIMATED GFR (MDRD EQUATION) > 60; MAGNESIUM 2.4 mg/dL (1.8-2.6); POTASSIUM 4.4 mMol/L (3.7-5.1); SODIUM 142 mMol/L (135-145)
[2017-04-27 17:11] LABS: BICARBONATE 27.2 mmol/L (18.0-23.0); PCO2 46 mmHg (35-45)
[2017-04-27 17:12] LABS: PO2 70 mmHg (80-90)
[2017-04-27 20:34] LABS: BICARBONATE 26.6 mmol/L (18.0-23.0); PCO2 42 mmHg (35-45); PO2 92 mmHg (80-90)
[2017-04-28 04:16] LABS: BASOPHIL % 0.2 %; EOSINOPHIL % 0.5 %; HEMATOCRIT 31.4 % (30.0-46.0); HEMOGLOBIN 9.6 g/dL (10.0-15.0); IMMATURE GRANULOCYTE % 0.3 %; LYMPHOCYTE # 0.6 K/uL (0.8-4.0); LYMPHOCYTE % 9.4 %; MCH 33.7 pg (27.0-34.0); MCHC 30.6 gm/dL (32.0-36.5); MCV 110.2 fl (83.0-98.0); MONOCYTE # 0.9 K/uL (0.0-1.0); MONOCYTE % 13.1 %; MPV 10.8 fl (9.4-12.4); NEUTROPHIL # (ANC) 5.1 K/uL (1.8-7.8); NEUTROPHIL % 76.5 %; NRBC % 0 /100WBC (0-0.00); PLATELET COUNT 92 K/uL (150-450); RBC 2.85 M/uL (3.00-5.00); RDW-CV 14.7 % (11.9-14.6); WBC 6.6 K/uL (4.0-11.0)
[2017-04-28 04:25] LABS: INR - (THERAPEUTIC) 1.07 (0.92-1.07); PROTIME 11.2 SECONDS (9.8-11.4)
[2017-04-28 04:30] LABS: ANION GAP 13.8 (10.0-19.0); BLOOD UREA NITROGEN 32 mg/dL (6-24); CALCIUM 8.3 mg/dL (8.5-10.5); CHLORIDE 108 mMol/L (96-110); CO2 24 mMol/L (22-32); CREATININE 0.7 mg/dL (0.5-1.1); ESTIMATED GFR (MDRD EQUATION) > 60; MAGNESIUM 2.2 mg/dL (1.8-2.6); POTASSIUM 3.8 mMol/L (3.7-5.1); SODIUM 142 mMol/L (135-145)
[2017-04-28 05:56] LABS: HEMATOCRIT 30.9 % (30.0-46.0); HEMOGLOBIN 9.8 g/dL (10.0-15.0); MCH 33.9 pg (27.0-34.0); MCHC 31.7 gm/dL (32.0-36.5); MCV 106.9 fl (83.0-98.0); MPV 10.5 fl (9.4-12.4); RBC 2.89 M/uL (3.00-5.00); RDW-CV 14.6 % (11.9-14.6); WBC 6.7 K/uL (4.0-11.0)
[2017-04-28 10:50] LABS: HEMATOCRIT 29.4 % (30.0-46.0); HEMOGLOBIN 9.3 g/dL (10.0-15.0)
[2017-04-29 04:02] LABS: BASOPHIL % 0.3 %; EOSINOPHIL # 0.3 K/uL (0.0-0.5); EOSINOPHIL % 4.6 %; HEMATOCRIT 28.8 % (30.0-46.0); HEMOGLOBIN 9.2 g/dL (10.0-15.0); IMMATURE GRANULOCYTE % 0.5 %; LYMPHOCYTE # 0.6 K/uL (0.8-4.0); LYMPHOCYTE % 9.5 %; MCH 33.8 pg (27.0-34.0); MCHC 31.9 gm/dL (32.0-36.5); MCV 105.9 fl (83.0-98.0); MONOCYTE # 0.9 K/uL (0.0-1.0); MONOCYTE % 14.4 %; MPV 10.5 fl (9.4-12.4); NEUTROPHIL # (ANC) 4.6 K/uL (1.8-7.8); NEUTROPHIL % 70.7 %; NRBC % 0.3 /100WBC (0-0.00); PLATELET COUNT 104 K/uL (150-450); RBC 2.72 M/uL (3.00-5.00); RDW-CV 14.5 % (11.9-14.6); WBC 6.5 K/uL (4.0-11.0)
[2017-04-29 04:13] LABS: INR - (THERAPEUTIC) 1.23 (0.92-1.07); PROTIME 12.9 SECONDS (9.8-11.4)
[2017-04-29 04:18] LABS: BLOOD UREA NITROGEN 40 mg/dL (6-24); CHLORIDE 108 mMol/L (96-110); CO2 26 mMol/L (22-32); CREATININE 0.8 mg/dL (0.5-1.1); ESTIMATED GFR (MDRD EQUATION) > 60; MAGNESIUM 2.2 mg/dL (1.8-2.6); SODIUM 142 mMol/L (135-145)
[2017-04-30 04:26] LABS: BASOPHIL % 0.3 %; EOSINOPHIL # 0.6 K/uL (0.0-0.5); EOSINOPHIL % 6.4 %; HEMATOCRIT 32.9 % (30.0-46.0); HEMOGLOBIN 10.6 g/dL (10.0-15.0); IMMATURE GRANULOCYTE # 0.1 K/uL (0.0-0.3); IMMATURE GRANULOCYTE % 0.6 %; LYMPHOCYTE # 0.7 K/uL (0.8-4.0); MCH 33.8 pg (27.0-34.0); MCHC 32.2 gm/dL (32.0-36.5); MCV 104.8 fl (83.0-98.0); MONOCYTE # 0.8 K/uL (0.0-1.0); MONOCYTE % 8.4 %; MPV 10.5 fl (9.4-12.4); NEUTROPHIL # (ANC) 6.8 K/uL (1.8-7.8); NEUTROPHIL % 76.3 %; NRBC % 0.2 /100WBC (0-0.00); RBC 3.14 M/uL (3.00-5.00); RDW-CV 14.5 % (11.9-14.6)
[2017-04-30 04:32] LABS: PLATELET COUNT 152 K/uL (150-450)
[2017-04-30 04:43] LABS: ALBUMIN 2.7 gm/dL (3.5-5.0); ANION GAP 10.7 (10.0-19.0); BLOOD UREA NITROGEN 40 mg/dL (6-24); CALCIUM 8.4 mg/dL (8.5-10.5); CHLORIDE 109 mMol/L (96-110); CO2 26 mMol/L (22-32); CREATININE 0.8 mg/dL (0.5-1.1); ESTIMATED GFR (MDRD EQUATION) > 60; MAGNESIUM 2.3 mg/dL (1.8-2.6); PHOSPHORUS 2.6 mg/dL (2.5-4.9); POTASSIUM 3.7 mMol/L (3.7-5.1); SODIUM 142 mMol/L (135-145)
[2017-04-30 04:51] LABS: INR - (THERAPEUTIC) 1.34 (0.92-1.07); PROTIME 14.1 SECONDS (9.8-11.4)
[2017-05-01 04:20] LABS: INR - (THERAPEUTIC) 1.57 (0.92-1.07); PROTIME 16.6 SECONDS (9.8-11.4)
[2017-05-01 04:31] LABS: ANION GAP 12.1 (10.0-19.0); BLOOD UREA NITROGEN 34 mg/dL (6-24); CALCIUM 8.7 mg/dL (8.5-10.5); CHLORIDE 108 mMol/L (96-110); CO2 25 mMol/L (22-32); CREATININE 0.7 mg/dL (0.5-1.1); ESTIMATED GFR (MDRD EQUATION) > 60; MAGNESIUM 2.4 mg/dL (1.8-2.6); POTASSIUM 4.1 mMol/L (3.7-5.1); SODIUM 141 mMol/L (135-145)
[2017-05-02 05:35] LABS: INR - (THERAPEUTIC) 2.15 (0.92-1.07); PROTIME 22.8 SECONDS (9.8-11.4)
[2017-05-03 07:38] LABS: INR - (THERAPEUTIC) 2.91 (0.92-1.07); PROTIME 30.9 SECONDS (9.8-11.4)
[2017-05-04 05:26] LABS: INR - (THERAPEUTIC) 3.04 (0.92-1.07); PROTIME 32.3 SECONDS (9.8-11.4)
[2017-05-04 05:32] LABS: ANION GAP 10.9 (10.0-19.0); BLOOD UREA NITROGEN 45 mg/dL (6-24); CALCIUM 8.5 mg/dL (8.5-10.5); CHLORIDE 106 mMol/L (96-110); CO2 30 mMol/L (22-32); CREATININE 0.8 mg/dL (0.5-1.1); ESTIMATED GFR (MDRD EQUATION) > 60; MAGNESIUM 2.7 mg/dL (1.8-2.6); POTASSIUM 4.9 mMol/L (3.7-5.1); SODIUM 142 mMol/L (135-145)
[2017-05-04] MEDS ORDERED: LANOXIN (DIGI250 MCG PO (13:05)
[2017-05-04] MEDS ORDERED: MELATONIN3 MG PO (13:09)
[2017-05-04] MEDS ORDERED: BENGAY/ICY HOT/30 GM TOP (13:10)
[2017-05-04] MEDS ORDERED: LOPRESSOR25 MG PO (13:11)
[2017-05-04] MEDS ORDERED: NUCYNTA50 MG PO (13:12)
[2017-05-04] MEDS ORDERED: FLORASTOR250 MG PO (13:12)
[2017-05-04] MEDS ORDERED: TYLENOL325 MG PO (13:14)
[2017-05-04] MEDS ORDERED: ALBUTEROL2.5 MG/31 INH (13:15)
[2017-05-04] MEDS ORDERED: NORCO 5-325 TA1 EACH PO (13:16)
[2017-05-04] MEDS ORDERED: FLEET ENEMA133 ML R (13:17)
[2017-05-04] MEDS ORDERED: MILK OF MA400 MG/5 M PO (13:17)
[2017-05-04] MEDS ORDERED: DULCOLAX10 MG R (13:17)
== END 2017-05-04 13:35 | DRG 480 ==
LOC: GNTU 17:09 → GICU 05-04 06:43
PROVIDERS: Hospitalist; Internal Medicine; Nurse Anesthetist, Certified Registered; Orthopaedic Surgery; Physician Assistant; ADMIT Internal Medicine
PROC: B246ZZZ Ultrasonography of Right and Left Heart (ICD-10-PCS; principal; 2017-04-25)
PROC: 3E0F7GC Introduction of Other Therapeutic Substance into Respiratory Tract, Via Natural or Artificial Opening (ICD-10-PCS; principal; 2017-04-25)
PROC: 0QS606Z Reposition Right Upper Femur with Intramedullary Internal Fixation Device, Open Approach (ICD-10-PCS; 2017-04-27)
PROC: 3E0F7HZ Introduction of Radioactive Substance into Respiratory Tract, Via Natural or Artificial Opening (ICD-10-PCS; 2017-05-02)
DX: S72.141A Displaced intertrochanteric fracture of right femur, initial encounter for closed fracture (principal); J96.01 Acute respiratory failure with hypoxia; I95.89 Other hypotension; I11.0 Hypertensive heart disease with heart failure; I50.32 Chronic diastolic (congestive) heart failure; D68.9 Coagulation defect, unspecified; I27.2 Other secondary pulmonary hypertension; D62 Acute posthemorrhagic anemia; N39.0 Urinary tract infection, site not specified; B96.20 Unspecified Escherichia coli [E. coli] as the cause of diseases classified elsewhere; W19.XXXA Unspecified fall, initial encounter; Z91.81 History of falling; I73.9 Peripheral vascular disease, unspecified; R41.89 Other symptoms and signs involving cognitive functions and awareness; I27.81 Cor pulmonale (chronic); I48.2 Chronic atrial fibrillation; R44.1 Visual hallucinations
CPT/HCPCS: A9539; A9540; C1713; J0690; J0696; J1644; J1650; J1885; J1940; J1956; J2001; J2270; J3010; J7030; J7040; J7050; J7120; P9017; P9045; P9047